=== PATIENT | female | born 1985 | race Two or more races ===

== ENCOUNTER 2021-12-23 19:49 | Emergency (ER) | payer SELFPAY ==
[~2021-12-23] VITALS: Ht 154.9 cm; Wt 71.7 kg
[2021-12-23] MEDS ORDERED: ONDANSETRON PF 4 MG/2 ML VIAL. IVP ONE (22:30)
[2021-12-23] MEDS ORDERED: MORPHINE SULFATE 4 MG/ML INJ. IV ONE (22:30)
[2021-12-23] MEDS ORDERED: IV NORMAL SALINE 1000ML BAG 1,000 ML IV ONE (22:30)
[2021-12-23 22:41] LABS: BACTERIA,URINE 0 /HPF (0-FEW); RBC,URINE OCC /HPF (0-2)
[2021-12-23 22:52] LABS: BASO % 0 % (0-3); EOS # 0.1 x10^3/uL (0.0-0.7); EOS % 1 % (0-3); HEMOGLOBIN 13.6 g/dL (12.0-15.5); LYMPH # 2.5 x10^3/uL (1.0-4.8); LYMPH % 32 % (24-48); MEAN CORPUSCULAR HEMOGLOBIN 27 pg (25-35); MEAN CORPUSCULAR HGB CONC 35 g/dL (31-37); MEAN CORPUSCULAR VOLUME 78 fL (79-100); MONO # 0.5 x10^3/uL (0.0-1.1); MONO % 7 % (0-9); NEUT # 4.6 x10^3/uL (1.8-7.7); NEUT % 60 % (31-73); PLATELET COUNT 230 x10^3/uL (140-400); RED CELL DISTRIBUTION WIDTH 13.8 % (11.5-14.5); WHITE BLOOD COUNT 7.7 x10^3/uL (4.0-11.0)
[2021-12-23 23:02] LABS: CREATININE 0.7 mg/dL (0.6-1.0); GFR 95.8; POTASSIUM 4.1 mmol/L (3.5-5.1)
[2021-12-23 23:07] LABS: ALBUMIN 3.9 g/dL (3.4-5.0); ALBUMIN/GLOBULIN RATIO 0.8 (1.0-1.7); TOTAL BILIRUBIN 0.5 mg/dL (0.2-1.0); TOTAL PROTEIN 8.5 g/dL (6.4-8.2)
--- NOTE | 2021-12-24 00:02 | PHYS DOC ---
Past Medical History Past Surgical History: Cholecystectomy, Hysterectomy Smoking Status: Never Smoker Alcohol Use: None Adult General Chief Complaint Chief Complaint: ABDOMINAL PAIN HPI HPI Patient is a 36 year old female presenting to emergency department for evaluation of right upper quadrant pain radiating to the right flank that has b een going on for 3 weeks. Patient is Thai-speaking only and the [place] sign language teacher was used for all communication. She says the pain is constant and never gets better but sometimes when she eats or moves the pain gets worse. She denies any fevers chills nausea vomiting diarrhea constipation dysuria hematuria vaginal bleeding vaginal discharge chest pain or shortness of breath. She says that she has had a cholecystectomy several years ago. She has also had C-sections but no other abdominal surgery. She is in no acute distress with normal vital signs. Review of Systems Review of Systems Constitutional: Denies fever or chills [] Eyes: Denies change in visual acuity, redness, or eye pain [] HENT: Denies nasal congestion or sore throat [] Respiratory: Denies cough or shortness of breath [] Cardiovascular: No additional information not addressed in HPI [] GI: + abdominal pain. No nausea, vomiting, bloody stools or diarrhea [] : Denies dysuria or hematuria [] Musculoskeletal: Denies back pain or joint pain [] Integument: Denies rash or skin lesions [] Neurologic: Denies headache, focal weakness or sensory changes [] All other systems were reviewed and found to be within normal limits, except as documented in this note. Current Medications Current Medications Current Medications Medications (Trade) Dose Ordered Sig/Sally Start Time Stop Time Status Last Admin Dose Admin Morphine Sulfate (Morphine Sulfate) 4 mg 1X ONCE 12/23/21 22:30 12/23/21 22:31 DC 12/23/21 22:39 4 MG Ondansetron HCl (Zofran) 4 mg 1X ONCE 12/23/21 22:30 12/23/21 22:31 DC 12/23/21 22:40 4 MG Sodium Chloride 1,000 ml @ 1,000 mls/hr 1X ONCE 12/23/21 22:30 12/23/21 23:29 DC 12/23/21 22:39 1,000 MLS/HR Allergies Allergies Allergies Coded Allergies Type Severity Reaction Last Updated Verified No Known Drug Allergies 12/23/21 No Physical Exam Physical Exam Constitutional: Well developed, well nourished, no acute distress, non-toxic appearance. [] HENT: Normocephalic, atraumatic, bilateral external ears normal, oropharynx moist, no oral exudates, nose normal. [] Eyes: PERRLA, EOMI, conjunctiva normal, no discharge. [] Neck: Normal range of motion, no tenderness, supple, no stridor. [] Cardiovascular:Heart rate regular rhythm, no murmur [] Lungs & Thorax: Bilateral breath sounds clear to auscultation [] Abdomen: Bowel sounds normal, soft, RUQ tenderness, no rebound or guarding, no masses, no pulsatile masses. [] Skin: Warm, dry, no erythema, no rash. [] Back: No tenderness, no CVA tenderness. [] Extremities: No tenderness, no cyanosis, no clubbing, ROM intact, no edema. [] Neurologic: Alert and oriented X 3, normal motor function, normal sensory function, no focal deficits noted. [] Current Patient Data Vital Signs Vital Signs Date Time Temp Pulse Resp B/P (MAP) Pulse Ox O2 Delivery O2 Flow Rate FiO2 12/23/21 20:25 98.3 87 16 119/79 (92) 98 Room Air 98.3 Lab Values Laboratory Tests Test 12/23/21 22:15 12/23/21 22:21 12/23/21 22:40 Urine Collection Type Unknown Urine Color (Auto) Light yellow Urine Turbidity Clear Urine pH (Auto) 6.5 (<5.0-8.0) Urine Specific [place] 1.040 (1.000-1.030) Urine Protein (Auto) Negative mg/dL (Negative) Urine Glucose (Auto)(UA) >=1000 mg/dL (Negative) Urine Ketones (Auto) Trace mg/dL (Negative) Urine Blood (Auto) Negative (Negative) Urine Nitrite Negative (Negative) Urine Bilirubin (Auto) Negative (Negative) Urine Urobilinogen (Auto) Normal mg/dL (Normal) Urine Leukocyte Esterase (Auto) Negative (Negative) Urine RBC Occ /HPF (0-2) Urine WBC 1-4 /HPF (0-4) Urine Squamous Epithelial Cells Mod /LPF Urine Bacteria 0 /HPF (0-FEW) POC Urine HCG, Qualitative Hcg negative (Negative) White Blood Count 7.7 x10^3/uL (4.0-11.0) Red Blood Count 5.00 x10^6/uL (3.50-5.40) Hemoglobin 13.6 g/dL (12.0-15.5) Hematocrit 39.0 % (36.0-47.0) Mean Corpuscular Volume 78 fL (79-100) L Mean Corpuscular Hemoglobin 27 pg (25-35) Mean Corpuscular Hemoglobin Concent 35 g/dL (31-37) Red Cell Distribution Width 13.8 % (11.5-14.5) Platelet Count 230 x10^3/uL (140-400) Neutrophils (%) (Auto) 60 % (31-73) Lymphocytes (%) (Auto) 32 % (24-48) Monocytes (%) (Auto) 7 % (0-9) Eosinophils (%) (Auto) 1 % (0-3) Basophils (%) (Auto) 0 % (0-3) Neutrophils # (Auto) 4.6 x10^3/uL (1.8-7.7) Lymphocytes # (Auto) 2.5 x10^3/uL (1.0-4.8) Monocytes # (Auto) 0.5 x10^3/uL (0.0-1.1) Eosinophils # (Auto) 0.1 x10^3/uL (0.0-0.7) Basophils # (Auto) 0.0 x10^3/uL (0.0-0.2) Sodium Level 134 mmol/L (136-145) L Potassium Level 4.1 mmol/L (3.5-5.1) Chloride Level 99 mmol/L (98-107) Carbon Dioxide Level 24 mmol/L (21-32) Anion Gap 11 (6-14) Blood Urea Nitrogen 8 mg/dL (7-20) Creatinine 0.7 mg/dL (0.6-1.0) Estimated GFR (Cockcroft-Gault) 95.8 BUN/Creatinine Ratio 11 (6-20) Glucose Level 298 mg/dL (70-99) H Calcium Level 9.0 mg/dL (8.5-10.1) Total Bilirubin 0.5 mg/dL (0.2-1.0) Aspartate Amino Transferase (AST) 99 U/L (15-37) H Alanine Aminotransferase (ALT) 157 U/L (14-59) H Alkaline Phosphatase 95 U/L (46-116) Total Protein 8.5 g/dL (6.4-8.2) H Albumin 3.9 g/dL (3.4-5.0) Albumin/Globulin Ratio 0.8 (1.0-1.7) L Lipase 92 U/L (73-393) Laboratory Tests 12/23/21 22:40 Laboratory Tests 12/23/21 22:40 EKG EKG [] Radiology/Procedures Radiology/Procedures [] Course & Med Decision Making Course & Med Decision Making Patient's CT shows hepatomegaly and she does have transaminitis as well in addition to hyperglycemia. Given the left adnexal mass will order ultrasound to ensure there is no torsion. I had approximate 15-minute discussion with patient on the [place] language [place] sign language interpreter regarding her symptoms and testing results. She appears to have hepatomegaly with transaminitis from unknown cause. There is no signs of biliary duct inflammation and she says she does not take Tylenol or drink alcohol and she has not had any viral syndrome symptoms. Patient says that her pain is gone after treatment emergency department and her repeat abdominal exam is benign with no focal tenderness rebound or guarding and she is drinking fluids with no difficulty. Her pelvic ultrasound showed no signs of torsion but I did relay the findings of a cyst and the need for follow-up. I discussed all labs, including hyperglycemia and imaging findings and the need for follow-up. Patient says she feels well and like to go home given there is no indication for admission I am agreeable to discharge but told her she will need to follow with GI as an outpatient and recommended following with her primary care provider within 2 to 3 days for recheck. I will prescribe her supportive medications as an outpatient and told her to call the GI clinic for follow-up and she can come back to emergency department anytime with worsening pain fevers vomiting or other general concerns. Patient aware and agreeable with plan for discharge and verbalized understanding of the above instructions. Dragon Disclaimer Dragon Disclaimer This electronic medical record was generated, in whole or in part, using a voice recognition dictation system. Departure Departure Impression: Primary Impression: Abdominal pain Additional Impressions: Hepatomegaly Transaminitis Hyperglycemia Disposition: HOME / SELF CARE / HOMELESS Condition: STABLE Referrals: NO PCP (PCP) ERASMO DUDLEY MD Patient Instructions: Hepatomegaly Scripts Ondansetron (ONDANSETRON ODT) 4 Mg Tab.rapdis 1 TAB PO PRN Q6-8HRS, #16 TAB Prov: ABI REES DO 12/24/21 Oxycodone Hcl (OXYCODONE HCL) 5 Mg Capsule 5 MG PO PRN Q6HRS PRN for PAIN, #14 TAB 0 Refills Prov: ABI REES DO 12/24/21 Problem Qualifiers Primary Impression: Abdominal pain Abdominal location: right upper quadrant Qualified Codes: R10.11 - Right upper quadrant pain ABI REES DO December 24, 2021 00:02
[2021-12-24 01:08] VITALS: BP 108/64
[2021-12-24] MEDS ORDERED: ONDA4TAB12 PO (01:22)
[2021-12-24] MEDS ORDERED: OXYC5CAP PO (01:22)
--- NOTE | 2021-12-24 12:23 | RAD ---
US TRANSVAGINAL Clinical Indication: Reason: L adnexal mass on CT, rec US per radiologist / Spl. Instructions: / His tory: Comparison: CT abdomen and pelvis without contrast, prior day. TECHNIQUE: Real-time ultrasound imaging of the pelvis using transvaginal window is performed. Findings: Anteverted uterus measures 10.2 x 6.5 x 4.6 cm. There is no abnormality of the myometrium. 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 The endometrial stripe of both horns measures 6 mm. The right ovary is normal. There is normal blood flow in the left ovary. There is a functional cyst o f the left ovary measuring 5.2 x 2.5 x 2.4 cm. There is a second smaller functional cyst. No evidence of adnexal mass. No free fluid is identified. IMPRESSION: 1. There is a moderate sized left ovary functional cyst. There is normal blood flow in the ovaries. 2. Question bicornuate uterus. Electronically signed by: Jameson Hayes MD (12/24/2021 2:00 AM) [facility]
--- NOTE | 2021-12-24 12:23 | RAD ---
EXAM: CT Abdomen and Pelvis without IV contrast CLINICAL HISTORY: Reason: RUQ to R flank pain x 3 weeks COMPARISON: none TECHNIQUE: Helical CT of the abdomen and pelvis without intravenous contrast. Axial, coronal and sagi ttal reformatted images were generated. PQRS compliance statement - One or more of the following individualized dose reduction techniques wer e utilized for this study: 1. Automated exposure control 2. Adjustment of the mA and/or kV according to patient size 3. Use of iterative reconstruction technique FINDINGS: Lack of intravenous contrast limits evaluation of solid organs, vasculature, and lymph nodes. Lower chest: Lung bases are clear. Abdomen and Pelvis: Hepatic hypoattenuation, fatty liver. Liver is enlarged. Gallbladder is not seen likely from prior ch olecystectomy. No biliary duct dilatation. Pancreas, spleen and adrenal glands are unremarkable. No f ocal renal lesion. No hydronephrosis. No hydroureter. No renal tract calculus. Appendix is normal. Moderate colonic stool content is seen. No bowel obstruction. No abdominal or pel tian ascites. No abdominal or pelvic lymphadenopathy. Left adnexal lesion measures 5.3 x 3.7 cm. Aorta is normal in caliber. Bones: No aggressive osseous lesion is seen. IMPRESSION: Left adnexal lesion measures 5.3 cm and should be further assessed by ultrasound. Hepatomegaly. Hepatic hypoattenuation, fatty liver. No renal tract calculus. Moderate colonic stool content. No bowel obstruction. Electronically signed by: Eleazar Torres MD (12/23/2021 11:14 PM) [facility]
== END 2021-12-24 01:55 | disposition home or self-care (01) ==
LOC: ER 19:49
DX: R10.11 Right upper quadrant pain (principal); R16.0 Hepatomegaly, not elsewhere classified; R74.01 Elevation of levels of liver transaminase levels; R73.9 Hyperglycemia, unspecified
CPT/HCPCS: 36415; 74176; 76830; 80053; 81001; 81025; 83690; 85025; 96361; 96374; 96375; 99284; J2270; J2405; J7030; 99285-25